=== PATIENT | male | born 1960 | race Caucasian/White ===

== ENCOUNTER 2017-11-22 18:37 | Emergency (ER) | payer OTHER ==
[~2017-11-22] VITALS: Ht 180.3 cm; Wt 54.4 kg
--- NOTE | 2017-11-22 19:00 | NUR ---
PT PRESENTED TO THE ER WITH A C/O ANXIETY/PANIC ATTACK. PT APPEARS CALM AND IS AWAITING EVAL BY .
--- NOTE | 2017-11-22 19:20 | NUR ---
EKG IN PROGRESS AT THE BEDSIDE.
--- NOTE | 2017-11-22 19:40 | NUR ---
Patient discharged to home in stable condition. Written and verbal after care instructions given. Patient verbalizes understanding of instruction. PT AMBULATED OUT WITH A STEADY GAIT. VSS. PT IS TAKING A TAXI HOME.
[2017-11-22 19:42] VITALS: BP 138/67
[2017-11-27] MEDS ORDERED: ASPI-1169 PO (13:33)
[2017-11-27] MEDS ORDERED: SERT25TA5 PO (13:33)
[2017-11-27] MEDS ORDERED: BENZ1TAB7 PO (13:33)
[2017-11-27] MEDS ORDERED: RISP1TAB7 PO ×2 (13:33)
== END 2017-11-22 19:43 | disposition home or self-care (01) ==
LOC: ER 18:44
DX: F41.0 Panic disorder [episodic paroxysmal anxiety] (principal); I10 Essential (primary) hypertension
CPT/HCPCS: 93005; 99284; A4606; Z7610

== ENCOUNTER 2017-11-23 03:03 | Emergency (ER) | payer OTHER ==
[~2017-11-23] VITALS: Ht 177.8 cm; Wt 72.6 kg
[2017-11-23] MEDS ORDERED: IV D5/ 0.9% NACL 1,000 ML IV ONE (03:14)
[2017-11-23] MEDS ORDERED: risperiDONE 1 MG TABLET ONE (03:22)
--- NOTE | 2017-11-23 03:25 | NUR ---
LAUREN AT BEDSIDE STARTING IV
--- NOTE | 2017-11-23 03:27 | NUR ---
CONFERENCE PLANNER AT BEDSIDE TO TAKE BLLOD SAMPLES
[2017-11-23] MEDS ORDERED: risperiDONE 0.25 MG TABLET PO ONE (03:30)
[2017-11-23 03:36] LABS: BASOPHILS % (AUTO) 0.4 % (0.0-2.0); EOSINOPHILS # (AUTO) 0.1 /CMM (0.0-0.7); EOSINOPHILS % (AUTO) 0.8 % (0.0-6.0); HEMATOCRIT 41 % (39-51); HEMOGLOBIN 14.5 g/dL (13.5-17.5); LYMPHOCYTES # (AUTO) 1.4 /CMM (0.8-4.8); LYMPHOCYTES % (AUTO) 18.2 % (20.0-44.0); MEAN CORPUSCULAR HEMOGLOBIN 31 PG (26.0-33.0); MEAN CORPUSCULAR HGB CONC 35 g/dl (31.0-36.0); MEAN CORPUSCULAR VOLUME 87 fL (80-96); MONOCYTES # (AUTO) 0.8 /CMM (0.1-1.30); MONOCYTES % (AUTO) 10.7 % (2.0-12.0); NEUTROPHILS # (AUTO) 5.3 /CMM (1.8-8.9); NEUTROPHILS % (AUTO) 69.9 % (43.0-81.0); PLATELET COUNT (AUTO) 176 /CMM (150-450); RDW COEFFICIENT OF VARIATION 13.1 (11.5-15.0); WHITE BLOOD COUNT (AUTO) 7.6 K/uL (4.3-11.0)
--- NOTE | 2017-11-23 03:39 | NUR ---
RADIOLOGY AT BEDSIDE
--- NOTE | 2017-11-23 03:43 | NUR ---
RADIOLOGY HAS LEFT AFTER CXR
[2017-11-23 03:51] LABS: ALANINE AMINOTRANSFERASE 34 U/L (12-78); ALCOHOL, BLOOD < 3 mg/dL (0-0); ALKALINE PHOSPHATASE 72 U/L (46-116); ASPARTATE AMINOTRANSFERASE 26 U/L (15-37); BILIRUBIN,DIRECT 0.2 mg/dL (0.0-0.2); CARBON DIOXIDE 30 mmol/L (21-32); CHLORIDE 103 mmol/L (98-107); CREATININE 0.9 mg/dL (0.6-1.3); GLUCOSE 110 mg/dL (74-106); POTASSIUM 3.4 mmol/L (3.5-5.1); SODIUM SERUM 142 mmol/L (136-145); TOTAL PROTEIN, SERUM 7.7 g/dL (6.4-8.2); UREA NITROGEN, BLOOD 23 mg/dL (7-18)
[2017-11-23 03:56] LABS: SALICYLATE < 0.2 mg/dL (2.8-20.0)
[2017-11-23 03:58] LABS: ACETAMINOPHEN < 3 ug/ml (10-30)
[2017-11-23 04:11] LABS: APPEARANCE,URINE CLEAR (CLEAR); BILIRUBIN,URINE 1+ (NEGATIVE); BLOOD, URINE TRACE-INTA Ery/uL (NEGATIVE); COLOR,URINE YELLOW (YELLOW); KETONES,URINE 2+ (NEGATIVE); LEUKOCYTE ESTERASE ,URINE NEGATIVE (NEGATIVE); NITRITE, URINE NEGATIVE (NEGATIVE); PROTEIN,URINE NEGATIVE (NEGATIVE); UGLUCOSE NEGATIVE (NEGATIVE); UROBILINOGEN,URINE 0.2 EU/dL (0.2)
[2017-11-23 04:39] LABS: BACTERIA,URINE None seen /HPF (None Seen); MUCUS,URINE Many /LPF (None Seen); RBC,URINE 0-2 /HPF (0-2); SQUAMOUS EPITHELIAL CELL,UR Few /HPF (None Seen); WBC,URINE 0-2 /HPF (0-3)
--- NOTE | 2017-11-23 04:41 | NUR ---
IV PULLED OUT. AWAITING LAST TROP LEVEL BEFORE D/C
[2017-11-23 05:24] VITALS: BP 111/56
[2017-11-27] MEDS ORDERED: SERT25TA5 PO (13:33)
[2017-11-27] MEDS ORDERED: RISP1TAB7 PO ×2 (13:33)
[2017-11-27] MEDS ORDERED: BENZ1TAB7 PO (13:33)
[2017-11-27] MEDS ORDERED: ASPI-1169 PO (13:33)
== END 2017-11-23 05:25 | disposition home or self-care (01) ==
LOC: ER 03:05
DX: E86.0 Dehydration (principal); F41.0 Panic disorder [episodic paroxysmal anxiety]; I10 Essential (primary) hypertension
CPT/HCPCS: 36415; 71045; 80048; 80076; 80305; 80329; 81001; 84484; 85025; 93005; 96360; 99285; A4606; G0480 ×2; J7042 ×2; Z7610; 81000-TC

== ENCOUNTER 2017-11-24 04:47 | Inpatient (IN) | payer OTHER ==
[~2017-11-24] VITALS: Ht 180.3 cm; Wt 54.9 kg
--- NOTE | 2017-11-24 05:01 | NUR ---
PT PRESENTED TO THE ER WITH A C/O HEADACHE. PT AMBULATED TO BED #6 WITH A STEADY GAIT. PT PLACED ON THE MONITOR AND CONTINUOUS PULSE OX. PT HAS IRREGULAR HR. DR. SALAZAR IS AT THE BEDSIDE EVAULATING THE PT.
[2017-11-24] MEDS ORDERED: LORAZEPAM 1 MG TABLET PO ONE (05:30)
[2017-11-24] MEDS ORDERED: ACETAMINOPHEN ES 500 MG TABLET PO ONE (05:30)
[2017-11-24] MEDS ORDERED: LORAZEPAM 1 MG TABLET ONE (05:39)
[2017-11-24] MEDS ORDERED: ACETAMINOPHEN ES 500 MG TABLET ONE (05:39)
[2017-11-24] MEDS ORDERED: AMIODARONE 150 MG/3 ML VIAL IV ONE ×2 (05:55→22:28)
--- NOTE | 2017-11-24 05:55 | NUR ---
SALINE LOCK STARTED IN RAC. BLOOD DRAWN AND GIVEN TO LAB.
[2017-11-24] MEDS ORDERED: AMIODARONE 150 MG in IV D5W 100 ML IV ONE (06:00)
[2017-11-24] MEDS ORDERED: IV NS 0.9% 1,000 ML BAG IV ONE (06:00)
[2017-11-24] MEDS ORDERED: AMIODARONE 900 MG in IV D5W 500 ML IV ONE (06:00)
[2017-11-24 06:03] LABS: BASOPHILS # (AUTO) 0.1 /CMM (0.0-0.2); BASOPHILS % (AUTO) 0.9 % (0.0-2.0); EOSINOPHILS # (AUTO) 0.1 /CMM (0.0-0.7); EOSINOPHILS % (AUTO) 1.6 % (0.0-6.0); HEMATOCRIT 42 % (39-51); HEMOGLOBIN 14.4 g/dL (13.5-17.5); LYMPHOCYTES # (AUTO) 1.2 /CMM (0.8-4.8); LYMPHOCYTES % (AUTO) 18.7 % (20.0-44.0); MEAN CORPUSCULAR HEMOGLOBIN 31 PG (26.0-33.0); MEAN CORPUSCULAR HGB CONC 35 g/dl (31.0-36.0); MEAN CORPUSCULAR VOLUME 89 fL (80-96); MONOCYTES # (AUTO) 0.6 /CMM (0.1-1.30); MONOCYTES % (AUTO) 9.2 % (2.0-12.0); NEUTROPHILS # (AUTO) 4.6 /CMM (1.8-8.9); NEUTROPHILS % (AUTO) 69.6 % (43.0-81.0); PLATELET COUNT (AUTO) 153 /CMM (150-450); RDW COEFFICIENT OF VARIATION 13.2 (11.5-15.0); WHITE BLOOD COUNT (AUTO) 6.6 K/uL (4.3-11.0)
[2017-11-24 06:14] LABS: CALCIUM, SERUM 8.6 mg/dL (8.5-10.1); CARBON DIOXIDE 31 mmol/L (21-32); CHLORIDE 104 mmol/L (98-107); CREATININE 0.8 mg/dL (0.6-1.3); GLUCOSE 106 mg/dL (74-106); SODIUM SERUM 141 mmol/L (136-145); UREA NITROGEN, BLOOD 13 mg/dL (7-18)
[2017-11-24 06:22] LABS: INR 1.01 (0.87-1.13); TROPONIN I < 0.017 ng/mL (0.00-0.056)
[2017-11-24 06:27] LABS: ALKALINE PHOSPHATASE 69 U/L (46-116); ASPARTATE AMINOTRANSFERASE 30 U/L (15-37); BILIRUBIN,DIRECT 0.2 mg/dL (0.0-0.2); BILIRUBIN,TOTAL 0.8 mg/dL (0.2-1.0)
[2017-11-24 06:28] LABS: ALANINE AMINOTRANSFERASE 38 U/L (12-78); ALBUMIN 3.8 g/dL (3.4-5.0); B-TYPE NATRIURETIC PEPTIDE 107 PG/ML (0-125); TOTAL PROTEIN, SERUM 7.6 g/dL (6.4-8.2)
--- NOTE | 2017-11-24 07:35 | NUR ---
REPORT GIVEN TO HE OZUNA FOR MELISSA.
--- NOTE | 2017-11-24 07:36 | NUR ---
RECEIVED REPORT FOR MELISSA.
--- NOTE | 2017-11-24 08:11 | NUR ---
CALLED PANEL FOR ADMISSION
--- NOTE | 2017-11-24 16:06 | NUR ---
REPORT GIVEN TO BENOIT CUTLER FOR MELISSA UPON ADMISSION.
--- NOTE | 2017-11-24 16:06 | NUR ---
Scott lopez in [facility] - 11/24/17 at 1606 by SHAMAR REPORT GIVEN TO BENOIT CUTLER FOR MELISSA UPON ADMISSION.
--- NOTE | 2017-11-24 16:23 | NUR ---
PATIENT TRANSPORTED TO [facility] VIA ACLS PROTOCOL. RNBENOIT TO PROVIDE MELISSA.
[2017-11-24 16:30] VITALS: BP 134/65
--- NOTE | 2017-11-24 16:30 | NUR ---
RN NOTE RECEIVED PT FROM ER ON BED, AOX4, NO SOB, NO CHEST PAIN, IV AMIODARONE RUNNING AT 1 MG/MIN. PT ON TOBACCO SAMPLER, AFIB, 85, BP STABLE. PT CO BLURRED VISION. SAFETY MEASURES IMPLEMENTED, CALL LIGHT WITHIN REACH. WILL MONITOR PT CLOSELY.
[2017-11-24] MEDS ORDERED: ACETAMINOPHEN 325 MG TABLET PO PRN ×2 (19:00→22:13)
[2017-11-24] MEDS ORDERED: HYDROCODONE/APAP 5/325MG 1 EACH TABLET PO PRN (19:00)
[2017-11-24] MEDS ORDERED: ONDANSETRON HCL/PF 4 MG/2 ML VIAL IVP PRN (19:00)
[2017-11-24] MEDS ORDERED: ZOLPIDEM TARTRATE 5 MG TABLET PO PRN (19:00)
[2017-11-24] MEDS ORDERED: Z GUARD REMEDY 2 OZ OINT TP PRN (19:00)
[2017-11-24] MEDS ORDERED: MAGNESIUM HYDROXIDE 30 ML UDC PO PRN (19:00)
--- NOTE | 2017-11-24 19:45 | NUR ---
HE TD INITIAL NOTE RECEIVED PT FROM AM SHIFT ON BED, BACK FROM CT OF HEAD, AOX4, NO SOB, NO CHEST PAIN, ON RM AIR AND IV AMIODARONE RUNNING AT 0.5 MG/MIN. 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 PT C/O BLURRED VISION, NOTIFIED CATARINA MASNO. SAFETY MEASURES IMPLEMENTED, CALL LIGHT WITHIN REACH. WILL MONITOR PT CLOSELY. Addendum: 11/24/17 at 2308 by ALLAN DAIGLE RN RECEIVED PT MAURICIO CUTLER IN AM ON [place] [facility] [place] PER PROTOCOL TO 0.5MG, [facility].
[2017-11-24 20:00] VITALS: BP 107/69
[2017-11-24 20:48] LABS: BASOPHILS % (AUTO) 0.3 % (0.0-2.0); EOSINOPHILS # (AUTO) 0.2 /CMM (0.0-0.7); EOSINOPHILS % (AUTO) 1.4 % (0.0-6.0); HEMATOCRIT 43 % (39-51); HEMOGLOBIN 14.9 g/dL (13.5-17.5); LYMPHOCYTES # (AUTO) 1.4 /CMM (0.8-4.8); LYMPHOCYTES % (AUTO) 12.6 % (20.0-44.0); MEAN CORPUSCULAR HEMOGLOBIN 30 PG (26.0-33.0); MEAN CORPUSCULAR HGB CONC 34 g/dl (31.0-36.0); MEAN CORPUSCULAR VOLUME 88 fL (80-96); MONOCYTES # (AUTO) 0.9 /CMM (0.1-1.30); MONOCYTES % (AUTO) 8.3 % (2.0-12.0); NEUTROPHILS # (AUTO) 8.4 /CMM (1.8-8.9); NEUTROPHILS % (AUTO) 77.4 % (43.0-81.0); PLATELET COUNT (AUTO) 197 /CMM (150-450); RDW COEFFICIENT OF VARIATION 13.2 (11.5-15.0); RED BLOOD CELL COUNT(AUTO) 4.93 MIL/uL (4.5-6.0); WHITE BLOOD COUNT (AUTO) 10.9 K/uL (4.3-11.0)
[2017-11-24 20:56] LABS: CALCIUM, SERUM 8.5 mg/dL (8.5-10.1); CREATININE 0.8 mg/dL (0.6-1.3); POTASSIUM 3.1 mmol/L (3.5-5.1)
[2017-11-24 21:02] LABS: ALBUMIN 3.5 g/dL (3.4-5.0); BILIRUBIN,TOTAL 0.5 mg/dL (0.2-1.0); TOTAL PROTEIN, SERUM 7.2 g/dL (6.4-8.2)
[2017-11-24 21:10] LABS: THYROID STIMULATING HORMONE 1.677 uIU/mL (0.358-3.74)
[2017-11-24] MEDS ORDERED: AMIODARONE 900 MG in IV D5W 482 ML IV PRN (22:00)
[2017-11-24] MEDS ORDERED: BLOOD SUGAR DIAGNOSTIC 1 EACH STRIP IN SCH (22:00)
[2017-11-24] MEDS ORDERED: POTASSIUM CHLORIDE 20 MEQ TAB.PRT.SR PO ONE (22:30)
[2017-11-25] MEDS ORDERED: BLOOD SUGAR DIAGNOSTIC 1 EACH STRIP IN SCH
[2017-11-25 06:54] LABS: BASOPHILS % (AUTO) 0.1 % (0.0-2.0); EOSINOPHILS # (AUTO) 0.1 /CMM (0.0-0.7); EOSINOPHILS % (AUTO) 1.1 % (0.0-6.0); HEMATOCRIT 44 % (39-51); HEMOGLOBIN 14.9 g/dL (13.5-17.5); MEAN CORPUSCULAR HEMOGLOBIN 31 PG (26.0-33.0); MEAN CORPUSCULAR HGB CONC 34 g/dl (31.0-36.0); MEAN CORPUSCULAR VOLUME 90 fL (80-96); MONOCYTES % (AUTO) 8.1 % (2.0-12.0); NEUTROPHILS # (AUTO) 10.6 /CMM (1.8-8.9); NEUTROPHILS % (AUTO) 82.7 % (43.0-81.0); PLATELET COUNT (AUTO) 202 /CMM (150-450); RDW COEFFICIENT OF VARIATION 13.5 (11.5-15.0); RED BLOOD CELL COUNT(AUTO) 4.89 MIL/uL (4.5-6.0); WHITE BLOOD COUNT (AUTO) 12.8 K/uL (4.3-11.0)
[2017-11-25 07:15] LABS: CALCIUM, SERUM 8.5 mg/dL (8.5-10.1); CREATININE 0.8 mg/dL (0.6-1.3); MAGNESIUM 1.8 mg/dL (1.8-2.4); PHOSPHORUS 2.9 mg/dL (2.5-4.9); POTASSIUM 3.7 mmol/L (3.5-5.1)
--- NOTE | 2017-11-25 07:20 | NUR ---
RN TD CLOSING NOTE RECEIVED PT FROM AM SHIFT ON BED, BACK FROM CT OF HEAD, AOX4, NO SOB, NO CHEST PAIN, ON RM AIR AND IV AMIODARONE RUNNING AT 0.5 MG/MIN. 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 PT C/O BLURRED VISION, NOTIFIED CATARINA PRESSING DEPARTMENT SUPERVISOR, FEW MINUTES LATER PT REPORTED TO HAVE BETTER VISION, QS NO DEFICITS NOTES. SAFETY MEASURES IMPLEMENTED, CALL LIGHT WITHIN REACH. WILL MONITOR PT CLOSELY.
[2017-11-25] MEDS ORDERED: RISP1TAB7 PO (07:26)
--- NOTE | 2017-11-25 07:40 | NUR ---
RN NOTE RECEIVED PT ON BED, AOX4, ON TELEMONITOR SR 85, AMOIDARONE DRIP RUNNING AT 0.5MG/MIN. DENIES PAIN, BUT CO LACK OF OXYGEN, TIGHTNESS IN THE CHEST, SOB, ON NC 3 L/MIN. 02 SATURATION 98%, THAT HE IS LOOSING HIS SIGHT AND HEARING. VS STABLE. WILL FOLLOW UP WITH MD. SAFETY MEASURES IMPLEMENTED, CALL LIGHT WITHIN REACH.
[2017-11-25 08:00] VITALS: BP 121/75
[2017-11-25] MEDS: ASPIRIN 81 MG TAB.CHEW PO SCH (09:21)
[2017-11-25] MEDS: risperiDONE 1 MG TABLET PO SCH ×2 (10:12→21:50)
[2017-11-25 12:00] VITALS: BP 111/64
[2017-11-25] MEDS ORDERED: risperiDONE 1 MG TABLET PO SCH ×2 (13:30→22:00)
[2017-11-25 16:00] VITALS: BP 119/76
[2017-11-25] MEDS: BENZTROPINE MESYLATE (1 MG) 1 MG TABLET PO SCH (16:39)
[2017-11-25] MEDS: SERTRALINE HCL 25 MG TABLET PO SCH (16:39)
[2017-11-25 20:00] VITALS: BP 114/70
--- NOTE | 2017-11-25 20:30 | NUR ---
RN NOTED RECEIVED PT WATCHHING TV ON BED. NO ACUTE RESP DISTRESS. AOX 2
--- NOTE | 2017-11-25 20:32 | NUR ---
RN NOTES RECEIVED PT AWAKE WATCHING TV ON BED. BREATHING EVEN AND UNLABORED. DENIES PAIN. AOX 2-3 WITH PERIODS OF CONFUSION NOTED. WANTED TO INCREASED O2 STATING " I AM CRUSHING, INCREASE MY OXYGEN." NOTED PT WITH BLUNT REACTION NO ACUTE RESP DISTRESS, RECHECKED SATURATION 97% TELE MONITOR REVEALS SR HR 99. VS STABLE. AFEBRILE. PT DOESN'T LOOK IN ANY SIGNIFICANT CONDITION. IV SITE ON RAC G 20 INTACT AND PATENT. ABLE TO MOVE BUE AND BLE WITHOUT ANY DRIFTING NOTED. KEPT PT CLEAN AND DRY. REALITY ORIENTATION PROVIDED. EDUCATE PT REGARDING HIS O2 SATURATION EDUCATE REGARDING HIS DSE. CONDITION. AND PT DOESN'T EVEN HAVE REACTION. ENCOURAGED TO USED CALL LIGHT FOR ASSISTANCE. CALL LIGHT KEPT WITHIN EASY REACH,. WILL CLOSELY MONITOR.
[2017-11-26] VITALS: BP 92/56
[2017-11-26 04:00] VITALS: BP 109/60
--- NOTE | 2017-11-26 06:46 | NUR ---
RN NOTES PT ASLEEP WELL ON BED. BREATHING EVEN AND UNLABORED. DENIES PAIN AFEBRILE. ALL NEEDS ATTENDED. ALL DUE MEDICINE TOLERATED WELL. USED URINAL FOR BLADDER. REMAINED INS TABLE CONDITION NO WEAKNESS NO UNUSUAL UNUSUAL DRIFT OF ARM OR LEGS. REMAINED SR. KEPT CLEAN AND DRY. WILL ENDORSED CONTINUITY OF CARE TO AM NURSE.
[2017-11-26 07:03] LABS: BASOPHILS % (AUTO) 0.1 % (0.0-2.0); EOSINOPHILS % (AUTO) 0.2 % (0.0-6.0); HEMATOCRIT 41 % (39-51); HEMOGLOBIN 14.3 g/dL (13.5-17.5); LYMPHOCYTES # (AUTO) 0.7 /CMM (0.8-4.8); LYMPHOCYTES % (AUTO) 4.8 % (20.0-44.0); MEAN CORPUSCULAR HEMOGLOBIN 31 PG (26.0-33.0); MEAN CORPUSCULAR HGB CONC 35 g/dl (31.0-36.0); MEAN CORPUSCULAR VOLUME 88 fL (80-96); MONOCYTES # (AUTO) 1.3 /CMM (0.1-1.30); MONOCYTES % (AUTO) 9.4 % (2.0-12.0); NEUTROPHILS % (AUTO) 85.5 % (43.0-81.0); PLATELET COUNT (AUTO) 155 /CMM (150-450); RDW COEFFICIENT OF VARIATION 13.6 (11.5-15.0); RED BLOOD CELL COUNT(AUTO) 4.61 MIL/uL (4.5-6.0)
[2017-11-26 07:35] LABS: CALCIUM, SERUM 8.3 mg/dL (8.5-10.1); CREATININE 0.8 mg/dL (0.6-1.3); MAGNESIUM 1.7 mg/dL (1.8-2.4); POTASSIUM 3.6 mmol/L (3.5-5.1)
--- NOTE | 2017-11-26 07:55 | NUR ---
RN INITIAL NOTES PT AWAKE AND DENIES PAIN. SINUS TACH ON THE MONITOR. CALL LIGHT WITHIN REACH. WILL MONITOR
[2017-11-26 08:00] VITALS: BP 109/61
[2017-11-26] MEDS: risperiDONE 1 MG TABLET PO SCH ×2 (08:50→22:01)
[2017-11-26] MEDS: BENZTROPINE MESYLATE (1 MG) 1 MG TABLET PO SCH ×2 (08:50→16:57)
[2017-11-26] MEDS: ASPIRIN 81 MG TAB.CHEW PO SCH (08:50)
--- NOTE | 2017-11-26 09:56 | NUR ---
HE NOTES PT SEEN BY PHYSICAL THERAPIST Addendum: 11/26/17 at 0959 by JOLLY BRUCE RN WALKED APPROX 25 FT REPORTED
[2017-11-26] MEDS: Magnesium 1GM/D5W 100ML PREMIX 100 ML IV SCH ×2 (11:31→12:20)
[2017-11-26 12:00] VITALS: BP 116/72
[2017-11-26] MEDS ORDERED: risperiDONE 1 MG TABLET PO SCH (13:30)
[2017-11-26] MEDS ORDERED: Magnesium 1GM/D5W 100ML PREMIX 100 ML IV SCH (14:30)
--- NOTE | 2017-11-26 14:49 | NUR ---
rn notes 1131 magnesium duplicate order
--- NOTE | 2017-11-26 15:11 | NUR ---
Preparing Box Tender Consult was requested by Dr. Lo James for patient who was admitted to [facility] for stroke evaluation. Patient is alert and oriented x4. He is communicative and able to respond to all questions asked by the social sciences professor. Patient is a 57 year old male who presented to the ER for headache. He reports that he lives by himself at [address] [address]; [phone]. He stated that his brother Patrick Nguyen ([phone]) is his aircraft detail draftsperson and his support system. He stated that his brother visits often and checks up on him. He also stated that his brother has been helping him find employment and that he has been unemployed for the past six months. He notes that he has a 401k that he has taken $15,000 out of and that he lives off of that income. He denies use of alcohol/drugs. He denies any suicidal/homicidal ideations. He denies auditory/visual hallucinations. Per clinical case manager Bryon, patient has a psych consult. SW provided mental health referrals to the patient ([facility]- [address], [place] [address]; ), and [facility] ( [place] [address]; ) and [facility] ([address] [place] [address]; [phone]). Patient was also given Stroke Support Groups/Referrals information ([facility]- [address] [place] [address]; [phone]; National St[employer] Association: [phone]; [facility]- [address] [place] [address]- [phone]; [facility]- [phone]; [facility] [address] [place] [address] . ANGELINA notified nurse AZEVEDO regarding the above information. SW also spoke to the patient regarding placement and stated that he would like more information about this. Notified clinical case manager Bryon who stated that he would go and talk with the patient.
[2017-11-26 16:00] VITALS: BP_SYST 116; BP_SYST 125; BP_DIAS 68; BP_DIAS 72
[2017-11-26] MEDS ORDERED: ENOXAPARIN SODIUM 40 MG/0.4 ML DISP.SYRIN SQ SCH (16:00)
[2017-11-26] MEDS: SERTRALINE HCL 25 MG TABLET PO SCH (16:57)
--- NOTE | 2017-11-26 18:00 | NUR ---
Patient is alert, stated he lives alone at [address] [place], [place] [id number]; [phone]. He stated that his brother Patrick Nguyen ([phone]) is his account contact associate and his support system. Prior to admission, he was ambulatory and independent with adl's. He owns a cane and a walker, no homehealth reported. Current plan is to dc back to home once discharge. Addendum: 11/26/17 at 1801 by ARTHUR ROE RN Amended: Links added.
--- NOTE | 2017-11-26 19:20 | NUR ---
RN NOTES PT AWAKE ON BED. PT IS AOX2-3 . BREATHING EVEN AND UNLABORED. DENIES PAIN. SATING 98% ON ROOM AIR. SR- ST 100'S ON TELE MONITOR. PT IS ABLE TO AMBULATE WITH ASSIST. IV SITE ON RAC G 20 SL INTACT AND PATENT/ DENIES ANY CHEST PAIN OR SIGNIFICANT WEAKNESS. PT KEPT CLEAN AND DRY CALL LIGHT KEPT WITHIN EASY REACH WILL CONTINUE TO MONITOR.
[2017-11-26 20:00] VITALS: BP 93/58
[2017-11-27] VITALS: BP 122/65
--- NOTE | 2017-11-27 01:10 | NUR ---
RN NOTES TRANSFERRED PT TO ROOM 118-2 FOR CLOSELY MONITOR.
[2017-11-27 04:00] VITALS: BP 108/60
--- NOTE | 2017-11-27 06:51 | NUR ---
RN NOTES PT REMAINED IN STABLE CONDITION NO ATROPHY OR MUSCLE WEAKNESS SHOWS. USED URINAL BUT NEEDS REMINDER. AFEBRILE. DENIES ANY PAIN. KEPT PT CLEAN AND DRY. WILL ENDORSED CONTINUITY OF CARE TO AM NURSE.
[2017-11-27 07:13] LABS: CALCIUM, SERUM 8.3 mg/dL (8.5-10.1); CREATININE 0.7 mg/dL (0.6-1.3); MAGNESIUM 2.1 mg/dL (1.8-2.4); POTASSIUM 3.7 mmol/L (3.5-5.1)
--- NOTE | 2017-11-27 07:15 | NUR ---
DELMAR RN NOTES RECEIVED PATIENT AOX2-3 , DENIES SUICIDAL AND HOMICIDAL IDEATION , NOT IN ACUTE DISTRESS , RESPIRATIONS EVEN AND UNLABORED , SPO2 OF 98% VIA RA , SR 80 ON TELE MONITOR , IV OF R AC # 20 SL . 1:1 SITTER AT BEDSIDE , ALL NEEDS ATTENDED , BED ON LOW AND LOCKED POSITION ,SIDE RAILS X2 ,CALL LIGHT WITHIN REACH , HOb@ 35 , WILL CONTINUE TO MONITOR
[2017-11-27 08:00] VITALS: BP 119/65
[2017-11-27] MEDS: ASPIRIN 81 MG TAB.CHEW PO SCH (08:23)
[2017-11-27] MEDS: BENZTROPINE MESYLATE (1 MG) 1 MG TABLET PO SCH ×2 (08:23→17:00)
[2017-11-27] MEDS: risperiDONE 1 MG TABLET PO SCH (08:23)
--- NOTE | 2017-11-27 09:09 | NUR ---
DELMAR RN NOTES PATIENT STABLE AT THIS TIME , PHYSICIAL THERAPY SESSION ONGOING , WILL CONTINUE TO MONITOR
--- NOTE | 2017-11-27 10:20 | NUR ---
DELMAR RN NOTES ST AT BEDSIDE FOR EVAL , WILL CONTINUE TO MONITOR
[2017-11-27 12:00] VITALS: BP 102/61
[2017-11-27] MEDS ORDERED: ASPI-1169 PO (13:33)
[2017-11-27] MEDS ORDERED: SERT25TA5 PO (13:33)
[2017-11-27] MEDS ORDERED: BENZ1TAB7 PO (13:33)
[2017-11-27] MEDS ORDERED: RISP1TAB7 PO ×2 (13:33)
--- NOTE | 2017-11-27 13:40 | NUR ---
DELMAR RN NOTES SEEN AND EVALUATED BY CATARINA GOSS MELTER CASTER , DISCUSSED PT IS MORE AWAKE ALERT , OT , ST , PT EVAL WAS DONE , MRI OF THE BRAIN IS NEGATIVE , V/S STABLE , AFEBRILE , WILL CONTINUE TO MONITOR .
--- NOTE | 2017-11-27 13:40 | NUR ---
DELMAR RN NOTES OT AT BEDSIDE FOR EVAL .
[2017-11-27 16:00] VITALS: BP 112/61
--- NOTE | 2017-11-27 16:53 | NUR ---
DELMAR RN NOTES CASE DOUGLAS LIM AT BEDSIDE TALKING TO BROTHER FOR DC PLAN ,
--- NOTE | 2017-11-27 16:55 | NUR ---
DELMAR RN NOTES PT STABLE UPON DISCHARGE , NOT IN ACUTE DISTRESS , DENIES SOB AND DISCOMFORT AT THIS TIME , SPO2 OF 100% VIA RA , AFEBRILE , V/S STABLE , SKIN ASSESSMENT DONE NO WOUNDS NOTED , EXIT CARE PROVIDED , DISCHARGE INSTRUCTION EXPLAINED TO THE PATIENT AND BROTHER , CARINA AT BEDSIDE PROVIDED LIST FOR HELP FOR CAREGIVER , IV DISCONTINUED APPLIED PRESSURE NO BLEEDING NOTED , BELONGING LIST CHECKED BY RAYMOND ZAMORA , WHEELED DOWN PT TO THE LOBBY ACCOMPANIED BY BROTHER , MEDICATION PRESCRIPTION ATTACHED AND GIVEN TO BROTHER ,
[2017-11-27] MEDS ORDERED: SERTRALINE HCL 25 MG TABLET PO SCH (17:00)
== END 2017-11-27 17:08 | disposition home or self-care (01) | DRG 201 ==
LOC: ER 04:49 → TELE-TD 14:13 → TELE1 11-27 12:29
PROVIDERS: ADMIT Nurse Practitioner Acute Care; ATTEND Nurse Practitioner Acute Care
DX: I48.91 Unspecified atrial fibrillation (principal); F22 Delusional disorders; I10 Essential (primary) hypertension; F32.9 Major depressive disorder, single episode, unspecified; R51 Headache; H91.90 Unspecified hearing loss, unspecified ear
CPT/HCPCS: 36415; 70450-TC; 70551-TC; 71045-TC; 80048-TC; 80053-TC; 80061-TC; 80076-TC; 80305; 82962-TC; 83735-TC; 83880; 84100-TC; 84443-TC; 84484-TC; 85025-TC; 85652-TC; 85730-TC; 87081-TC; 92521; 93307-TC; 93880-TC; 97110-TC; 97116-TC; A4606; J0282; J1650; J2405; J3475; J7030; J7040; J7050; J7060; Z7610